=== PATIENT | male | born 1990 | race Caucasian/White ===

== ENCOUNTER 2017-09-11 18:24 | Emergency (ER) | payer BC ==
[~2017-09-11] VITALS: Ht 172.7 cm; Wt 63.5 kg
[~2017-09-11 18:24] MED LIST: FLEXERIL5 MG PO; LIBRAX 5 MG-2.51 CAP PO; LORTAB 5/500 501 TAB PO; MEDROL 4MG. DOSE4 MG PO; MOBIC7.5 MG PO; NAPROSYN 500MG500 MG PO; NOMEDS *; ROBAXIN-750750 MG PO; ULTRAM50 MG PO; VIBRAMYCIN 100100 MG PO; VITAMIN B122500 MC1 PO; WELCHOL625 MG
--- OUTSIDE RECORDS SUMMARY | 2017-09-11 18:31 | External Medical Summary Rpt | CCD ---
Author Author , ATTILA AIKEN Address Unknown Phone [email or web address] Care Team Providers Care Acidizer Water Well Name Role Phone Flip Rios MD, Unavailable Unavailable Flip Bowers MD, Unavailable Unavailable Marek Bowers MD Purpose Continuity of Care Document - 05-28-2013 through 2016 Problems Code Diagnosis DOS Provider Status 305.1 305.1 09-21-2013 [place] TOBACCO USE [facility] 578.9 578.9 09-21-2013 [place] [facility] 413.9 413.9 05-28-2013 [place] [facility] 786.05 786.05 05-28-2013 [place] [facility] 786.2 COUGH 05-28-2013 [facility] 924.8 924.8 05-28-2013 [place] MULTIPLE [facility] CONTUSIONS [facility] NEC Allergies, Adverse Reactions, Alerts Type Allergy to substance Drug Allergy Adverse Reaction to Substance Substance Reaction Severity INGREDIENT: NO KNOWN Unknown Unknown - NO KNOWN DRUG ALLERGY NO KNOWN DRUG Unknown Unknown ALLERGIES Medications Na ND Rx Da Fi Fi Am Da Di Ph RX Ph St me C No te ll ll ou ys ag ar # ys at rm s nt no ma ic us Or Da si cy ia de te s n re d Sa 63 12 0 No li 80 -2 ne 70 1- Lo 10 20 ng Fl 07 13 er us 5 h Ac 10 ti ML ve Sy ri ng e [place] [address] 27 -2 RO 00 1- Lo GR 44 20 ng AF 53 13 er IN 5 Ac 66 ti -1 ve 0 SO BERNADINE TI ON ON 00 12 0 No DA 64 -2 NS 16 1- Lo ET 08 20 ng RO 02 13 er N 5 HC Ac L ti 4 ve MG /2 ML AL Vital Signs 09-21-2013 05:45 Name Value Interpretat Reference Comment ion Range Body 97.9 [degF] Temperature BP 61 mm[Hg] Diastolic BP Systolic 112 mm[Hg] Heart 62 /min Rate/Pulse O2% 97 % Respiratory 20 /min Rate 09-21-2013 03:26 Name Value Interpretat Reference Comment ion Range BP 70 mm[Hg] Diastolic BP Systolic 125 mm[Hg] Heart 60 /min Rate/Pulse O2% 97 % Respiratory 20 /min Rate 05-28-2013 15:03 Name Value Interpretat Reference Comment ion Range Body 98.0 [degF] Temperature BP 66 mm[Hg] Diastolic BP Systolic 126 mm[Hg] Heart 75 /min Rate/Pulse O2% 99 % Respiratory 18 /min Rate 05-28-2013 14:00 Name Value Interpretat Reference Comment ion Range BP 70 mm[Hg] Diastolic BP Systolic 129 mm[Hg] Heart 84 /min Rate/Pulse O2% 99 % Respiratory 20 /min Rate Results Labs Lab Lab Date Result Refere Interp Status Commen Order Detail nces retati t Range on COMPREHENSIVE METABOLIC PANEL (09-21-2013 02:40) Glucose 88 74-106 complet 013 mg/dL ed Bld-mCn 02:40 c BUN 10 7-18 complet Bld-mCn 013 mg/dL ed c 02:40 Creat 1.2 0.8-1.3 complet SerPl-m 013 mg/dL ed Cnc 02:40 Creat 87 50-200 complet Cl 013 ML/MIN ed predict 02:40 ed SerPl C-G-vRa te GFR/BSA 76 Greater complet .pred 013 ML/MIN than ed SerPl 02:40 60 Schwart z-vRate Sodium 142 136-145 complet SerPl-s 013 mmoL/L ed Cnc 02:40 Potassi 3.7 3.5-5.1 complet um 013 mmoL/L ed SerPl-s 02:40 Cnc Chlorid 104 98-107 complet e 013 mmoL/L ed SerPl-s 02:40 Cnc CO2 31 21.0-32 complet SerPl-s 013 mmoL/L .0 ed Cnc 02:40 Calcium 12-21-2 8.8 8.5-10. complet 013 mg/dL 1 ed SerPl-m 02:40 Cnc Prot 09-21-2 7.5 6.4-8.2 complet SerPl-m 013 gm/dL ed Cnc 02:40 Albumin 09-21-2 4.4 3.4-5.0 complet 013 gm/dL ed SerPl-m 02:40 Cnc Globuli 09-21-2 3.1 1.3-3.2 complet n 013 gm/dL ed Ser-mCn 02:40 c Albumin 09-21-2 1.4 UNK 1.1-1.8 complet /Glob 013 ed SerPl-m 02:40 Rto Bilirub 09-21-2 0.3 0.2-1.0 complet 013 mg/dL ed SerPl-m 02:40 Cnc AST 09-21-2 8 U/L 15-37 complet SerPl-c 013 ed Cnc 02:40 ALT 09-21-2 32 U/L 30-65 complet SerPl-c 013 ed Cnc 02:40 ALP 09-21-2 109 U/L 50-136 complet SerPl-c 013 ed Cnc 02:40 Amylase SerPl-cCnc (09-21-2013 02:40) Amylase 09-21-2 36 U/L 25-115 complet 013 ed SerPl-c 02:40 Cnc LIPASE (09-21-2013 02:40) LIPASE 09-21-2 194 U/L 73-393 complet 013 ed 02:40 CBC with AUTO DIFF (09-21-2013 02:40) WBC # 09-21-2 9.5 4.8-10. complet Bld 013 K/MM3 8 ed Auto 02:40 RBC # 09-21-2 5.20 4.6-6.2 complet Bld 013 M/mm3 ed Auto 02:40 Hgb 09-21-2 16.5 14.1-18 complet Bld-mCn 013 g/dL .0 ed c 02:40 Hct Fr 09-21-2 44.9 % 42.0-52 complet Bld 013 .0 ed 02:40 MCV RBC 09-21-2 86.4 fl 82.2-97 complet 013 .8 ed 02:40 MCH RBC 09-21-2 31.7 pg 27-31.2 complet Qn 013 ed Auto 02:40 MEAN 12-21-2 36.7 31.8-35 complet CORPUSC 013 g/dl .4 ed ULAR 02:40 HGB CONC RDW RBC -21-2 13.9 % 11.5-17 complet Auto 013 .5 ed 02:40 Platele 12-21-2 173 142-424 complet t Bld 013 K/mm3 ed Ql 02:40 Manual MEAN -21-2 7.9 fl 7.4-10. complet PLATELE 013 4 ed T 02:40 VOLUME Granulo 12-21-2 57.5 % 37.0-80 complet cytes 013 .0 ed Fr Bld 02:40 Auto LYMPH % 12-21-2 35.0 % 10-50 complet 013 ed 02:40 Monocyt 12-21-2 6.2 % 1.7-9.3 complet es Fr 013 ed Bld 02:40 Auto Eosinop -21-2 1.0 % 0.1-12. complet hil Fr 013 0 ed Bld 02:40 Auto Basophi 12-21-2 0.3 % 0.1-2.0 complet ls Fr 013 ed Bld 02:40 Auto Granulo 12-21-2 5.4 1.3-8.0 complet cytes # 013 K/mm3 ed Bld 02:40 Auto Lymphoc 12-21-2 3.3 0.7-4.5 complet ytes Fr 013 K/mm3 ed Bld 02:40 Auto Monocyt 12-21-2 0.6 0.1-1.0 complet es # 013 K/mm3 ed Bld 02:40 Auto Eosinop 12-21-2 0.1 0.0-0.4 complet hil # 013 K/mm3 ed Bld 02:40 Auto Basophi 12-21-2 0.0 0-0.2 complet ls # 013 K/MM3 ed Bld 02:40 Auto ESR Bld Qn 15M (09-21-2013 02:40) ESR Bld 09-21-2 1 mm/hr 0-15 complet Qn 15M 013 ed 02:40 OCCULT BLOOD (09-21-2013 02:33) Hemocul 09-21-2 POSITIV NEG complet t sp1 013 E ed Stl Ql 02:33 URINALYSIS/COMPLETE (05-28-2013 14:30) URINE 08-27-2 YELLOW YELLOW complet COLOR 013 ed 14:30 URINE 05-28-2 CLEAR CLEAR complet APPEARA 013 ed NCE 14:30 URINE 05-28-2 NEGATIV NEG complet GLUCOSE 013 E ed - 14:30 DIPSTIC K URINE 05-28-2 NEGATIV NEG complet BILIRUB 013 E ed IN - 14:30 DIPSTIC K URINE 05-28-2 NEGATIV NEG complet KETONE 013 E mg/dL ed 14:30 URINE 05-28-2 1.025 1.005-1 complet SPECIFI 013 UNK .030 ed C 14:30 GRAVITY URINE 05-28-2 NEGATIV NEG complet BLOOD 013 E ed 14:30 URINE 05-28-2 6.5 UNK 5.0-8.5 complet PH 013 ed 14:30 URINE 05-28-2 NEGATIV NEG complet PROTEIN 013 E mg/dL ed - 14:30 DIPSTIC K URINE 05-28-2 1.0 NEG complet UROBILI 013 E.U./dL ed NOGEN - 14:30 DIPSTIC K URINE 05-28-2 NEGATIV NEG complet NITRATE 013 E ed - 14:30 DIPSTIC K URINE 05-28-2 NEGATIV NEG complet LEUK 013 E ed ESTERAS 14:30 E URINE 05-28-2 OCC 0 complet RBC 013 rbc/hpf ed 14:30 URINE 05-28-2 OCC OCC complet SQUAMOU 013 #/hpf ed S CELLS 14:30 URINE 05-28-2 1+ O complet BACTERI 013 ed A 14:30 URINE 05-28-2 1+ NONE complet AMORPH 013 ed SEDIMEN 14:30 T Encounters Encounter Start End Date Code Location Performer Type Date Emergency JOSEE Bowers MD (ER) 3 02:13 3 05:46 [place] [facility] JOSEE Rios MD (ER) 3 13:25 3 15:04 [facility]
--- OUTSIDE RECORDS SUMMARY | 2017-09-11 18:31 | External Medical Summary Rpt | CCD ---
Author Author , ATTILA AIKEN Address Unknown Phone [email or web address] Care Team Providers Care Marketing Outreach Coordinator Name Role Phone Flip Rios MD, Unavailable Unavailable Flip Bowers MD, Unavailable Unavailable Marek Bowers MD Purpose Continuity of Care Document - 05-28-2013 through 2016 Problems Code Diagnosis DOS Provider Status 305.1 305.1 09-21-2013 [place] TOBACCO USE [facility] 578.9 578.9 09-21-2013 [place] [facility] 413.9 413.9 05-28-2013 [place] [facility] 786.05 786.05 05-28-2013 [place] [facility] 786.2 786.2 COUGH 05-28-2013 [facility] 924.8 924.8 05-28-2013 [place] MULTIPLE [facility] CONTUSIONS [facility] NEC Allergies, Adverse Reactions, Alerts Type [...] Bowers MD (ER) 3 02:13 3 05:46 [facility] JOSEE Rios MD (ER) 3 13:25 3 15:04 [facility]
--- OUTSIDE RECORDS SUMMARY | 2017-09-11 18:32 | External Medical Summary Rpt | CCD ---
Author Author , LEONARDO AIKEN Address Unknown Phone [email or web address] Purpose Continuity of Care Document - through 2016
--- OUTSIDE RECORDS SUMMARY | 2017-09-11 18:32 | External Medical Summary Rpt | CCD ---
Author Author , LEONARDO AIKEN Address Unknown Phone [email or web address] Purpose Continuity of Care Document - through 2016
--- OUTSIDE RECORDS SUMMARY | 2017-09-11 18:32 | External Medical Summary Rpt | CCD ---
Author Author , ATTILA AIKEN Address Unknown Phone [email or web address] Immunization Name Date Rout CVX Reac Dose Comm Prov Is Faci e tion ent ider Refu lity Give sed n Tdap 02-0 115 999 Hist HERMILO No HERMILO , 8-20 oric TTHO TTHO Adso 16 al MAS MAS rbed Info rmat ion - Sour ce Unsp ecif ied Td 11-0 9 999 Hist H201 No H201 (pauline 8-20 oric lt), 05 al Info adso rmat rbed ion - Sour ce Unsp ecif ied Hep 03-0 8 999 Hist H149 No H149 B, 3-20 oric ped/ 03 al adol Info rmat ion - Sour ce Unsp ecif ied Hep 09-2 8 999 Hist H149 No H149 B, 6-20 oric ped/ 02 al adol Info rmat ion - Sour ce Unsp ecif ied MMR 08-1 Intr 3 999 Hist H149 No H149 6-20 amus oric 02 cula al r Info rmat ion - Sour ce Unsp ecif ied Hep 08-1 8 999 Hist H149 No H149 B, 6-20 oric ped/ 02 al adol Info rmat ion - Sour ce Unsp ecif ied
--- OUTSIDE RECORDS SUMMARY | 2017-09-11 18:32 | External Medical Summary Rpt | CCD ---
Author Author , ATTILA AIKEN Address Unknown Phone Immunization Name Date Rout CVX Reac Dose [...]
--- NOTE | 2017-09-11 19:38 | Urgent Treatment Center Report ---
History of Present Issue Date/Time Seen by Provider 09/11/17 1902 Visit Reason Pt arrived:Walked Presenting Problem:C/O COUGH, SORE THROAT, CONGESTION, AND BODYACHES X2 WEEKS Location if Accident: Onset of symptoms date/time:/ or onset unknown for:MEDICAL HX UNKNOWN Have you (or family members/close friends) recently traveled outside the [place]? N If Yes, where/when: Have you had exposure to infectious disease within the past month? TB? Other? Specify: c/o not feeling well for two weeks. Started w/ cough and chest congestion. That hasn't improved. Denies SOA, wheezing. Tried waiting it out. Bodyaches, Sore throat and enlarged lymph nodes last 3-4 days. Hurts to swallow. Yajaira ear pressure new today. Finally missed work today so decided to be seen. No known sick contacts. Source patient Exam Limitations no limitations ALLERGIES Coded Allergies: No Known Allergies (03/07/16) Home Medications Active Scripts Methocarbamol (Robaxin 750MG) 750 MG PO Q8HP PRN pain #30 TAB Prov: 03/07/16 Reported Medications Cyanocobalamin (Vitamin B-12) (Vitamin B12) 500 MCG PO DAILY CHLORDIAZEPOXIDE/CLIDINIUM BR (Librax Capsule) 1 CAP PO ACHS PRN IBS History Medical History General CAD? No Angina: No [place]: No Hypertension? No Hyperlipidemia? No CHF? No DVT? No PE? No COPD? No Asthma? Yes Anemia? No GERD? No Gastric ulcers? No GI Bleed? No Hernia? No Thyroid Problems? No Hypothyroidism? No CVA? No Seizures? No Diabetes? No Renal Insuffiency? No UTI? No Stones? No BPH? No GB Disease: No Nephritic Syndrome? No Asplenia? No Hepatitis? No Sickle Cell Disease? No Arthritis? No Migraines? No Cataracts? No Glaucoma? No MRSA? No HIV? No TB? No Anxiety? No Depression? No Cancer? No More? No Immunization HX DT/Tetanus > 10 YRS Surgical Hx Previous Surgery?N Social History Smoking Hx Smoker: Current Every Day Smoker Tobacco: Yes Type Cigarettes Packs/day < 1 Pack Alcohol Alcohol: No Review of Systems All Other Systems Reviewed and Negative Constitutional see HPI Eyes denies drainage ENT see HPI. denies: ear discharge, nose discharge, nose congestion. Respiratory see HPI Cardiovascular denies chest pain Gastrointestinal denies no symptoms reported Musculoskeletal see HPI Skin denies rash Psychiatric/Neurological headache (mild, intermittent) Physical Exam Vital Signs Vital Signs Date Time Temp Pulse Resp B/P Pulse O2 O2 Flow FiO2 Ox Delivery Rate 09/11 1847 99.0 68 20 115/77 98 General Appearance normal appearance, no apparent distress Ear, Nose, Throat pharyngeal erythema (w/ enlarged uvula not tonsils), yajaira EAC, TMs, nares unremarkable Neck non-tender, supple Respiratory Status Yes: trachea midline, chest symmetrical, non productive cough (worse w/ deep breath). No: respiratory distress, use of accessory muscles. Lung Sounds anterior: lungs clear. posterior: lungs clear. bilateral: lungs clear. 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 No Results/Orders Laboratory Tests 09/11/171932: Group A Strep Screen NOT DETECTED Orders Procedure Date/time Status [facility] STREP SCREEN 09/11 1933 Complete Departure Departure Time of Disposition 2012 Disposition DC Home or Self Care(routine) Clinical Impression Primary Impression: Uvulitis Secondary Impressions: Cough in adult Condition STABLE Referrals NO REFERRAL IMMEDIATELY for new or worsening symptoms OR no noticeable improvement over the next 48 hours. 911 for difficulty breathing or swallowing. Patient Instructions DI for Cough -- Adult, DI for Uvulitis Additional Instructions * Start antibiotic DANIKA and be sure to take as ordered for the FULL length of time although you should start to feel better in 24-48 hours. * change toothbrush and toothpaste 24-48 hours after starting antibiotic * Monitor Temp. Tylenol every 4 hours as needed no more then 5 times a day or 4000mg in 24 hours and/or ibuprofen every 6 hours as needed no more then 3200mg in 24 hours (as long as your primary care doctor has told you that it is ok to take both) for fever/aches/pain. ER if fever no less than 101 despite tylenol and Ibuprofen * Encourage fluids, water, gatorade, powerade, pedialyte if /toddler/child * cold fluids, popsicles, ice cream feel good * you are contagious until you have taken the antibiotic for 24 hours. No school tomorrow. * Avoid kissing anyone, including parents. No eating or drinking after anyone. You are contagious. * Start steroid today. Helps with inflammation therefore, cough and wheezing. Follow directions on package. Rvwd side effects. Pt reports they have taken them before. * Bromfed may cause drowsiness. Know how it effects you (or your child) before driving, caring for small children, or sending your child to school. No other antihistamines/allergy medications while taking bromfed. Discharge Counseling Counseled pt/family regarding diagnosis, test results, medications/RX, home care, follow up needs Prescriptions Current Visit Scripts Amoxicillin/Potassium Clav (Augmentin 875-125 Tablet) 1 EACH PO BID #20 TAB D-METHORPHAN HB/P-EPD HCL/BPM (Bromfed Dm Cough Syrup) 10 ML PO QIDP PRN cough #240 ML Methylprednisolone (Medrol Dose Ran) 4 MG PO UD #1 RAN TAKE DIRECTED ON PACKAGING at 2017
[2017-09-11] MEDS ORDERED: MEDROL 4MG. DOSE4 MG PO (20:17)
[2017-09-11] MEDS ORDERED: AUGMENTIN 875-1 EACH PO (20:17)
[2017-09-11] MEDS ORDERED: BROMFED DM COU118 ML PO (20:17)
[2017-09-11 20:25] VITALS: BP 115/77
== END 2017-09-11 20:26 | disposition home or self-care (01) ==
LOC: UTC 18:24
DX: K12.2 Cellulitis and abscess of mouth (principal); Z72.0 Tobacco use